=== PATIENT | female | born 1980 | race Two or more races ===

== ENCOUNTER 2025-03-23 09:25 | Emergency (ER) | payer MEDICAID, SELFPAY ==
[2025-03-23 09:28] VITALS: BMI 26.2
[2025-03-23 09:40] VITALS: BP 137/85; PULSE 92; RESP 17; TEMP 36.8; O2SAT 98; BMI 25.8
[2025-03-23 10:38] LABS: Collection Type, Urine Clean Catch
[2025-03-23 10:57] LABS: Bacteria,Urine Rare; Bilirubin,Urine Negative (Negative); Blood,Urine 3+ (Negative); Clarity,Urine Clear (Clear/Hazy); Color,Urine Colorless (Lt Yel-Yel); Culture Indicated,Urine Not Indicated; Glucose, Urine Negative (Negative); Ketones,Urine Negative (Negative); Leukocyte Esterase,Urine Positive (Negative); Nitrite,Urine Negative (Negative); PH,Urine 6.5 (5.0-7.0); Protein,Urine Negative (Neg - Trace); RBC,Urine 1 /hpf (0-3); Specific Gravity,Urine 1.003 (1.001-1.035); Squamous Epithelial Cell,Urine < 1 /hpf (0-5); Urobilinogen,Urine Negative mg/dL (0.0-1.0); WBC,Urine 4 /hpf (0-5)
--- NOTE | 2025-03-23 11:19 | EDNOTE_ITS ---
ED Female Urogenital RME/HPI General Stated complaint: I THINK I HAVE UTI BLOOD IN URINE Time Seen by Provider: 03/23/25 09:30 Arrival date/time: 03/23/25 09:25 45-year-old female presents to the emergency department of complaints of dysuria and hematuria patient reports no chance of patient reports no back pain nausea or vomiting. No flank pain patient symptom onset this morning Limitations: no limitations Related Data Previous Rx's ?Medication ?Instructions ?Recorded hydrocodone 5 mg-acetaminophen 325 1 tab PO Q8H PRN pa in #12 tabs 12/13/23 mg tablet pantoprazole 40 mg tablet,delayed 40 mg PO QDAY #30 ta bs 12/13/23 release (Protonix) ciprofloxacin HCl 500 mg tablet 500 mg PO BID 7 days # 14 tabs 03/23/25 phenazopyridine 100 mg tablet 100 mg PO TID 2 days #6 tabs 03/23/25 (Pyridium) Allergies Allergy/AdvReac Type Severity Reaction Status Date / Time adhesive tape Allergy Severe Blister Verified 03/23/25 09:26 Review of Systems Review of Systems Systems Reviewed: All systems reviewed, normal except as documented Constitutional Constitutional: Reports system reviewed and no additional complaints, except as documented, Denies fever(s) and Denies headache(s) Eyes Eyes: Reports system reviewed and no additional complaints, except as documented and Denies blurry vision ENT Ears, Nose, Mouth, and Throat: Reports system reviewed and no additional complaints, except as documented, Denies headache(s), Denies nasal congestion and Denies nasal discharge Cardiovascular Cardiovascular: Reports system reviewed and no additional complaints, except as documented, Denies chest pain and Denies dyspnea Respiratory Respiratory: Reports system reviewed and no additional complaints, except as documented, Denies chest congestion, Denies cough and Denies dyspnea Gastrointestinal Gastrointestinal: Reports system reviewed and no additional complaints, except as documented and Denies abdominal pain Genitourinary Genitourinary: Reports system reviewed and no additional complaints, except as documented, Denies abnormal vaginal bleeding, Reports dysuria, Denies flank pain and Denies pelvic pain Integumentary/Breasts Skin/Breast: Reports system reviewed and no additional complaints, except as documented and Denies rash Neurologic Neurologic: Reports system reviewed and no additional complaints, except as documented, Reports as per HPI and Denies headache(s) Past Medical History Past Medical History NEUROLOGIC: Negative Neurological Disorders CARDIAC: Positive Cardiac Disorders and Hypertension; Negative Congestive Heart Failure RESPIRATORY: Negative Chronic Obstructive Pulmonary Disease (COPD) GASTROINTESTINAL: Negative Gastrointestinal Disorders GENITOURINARY: Negative Genitourinary Disorders or Renal Disease REPRODUCTIVE: Negative Breast Cancer MUSCULOSKELETAL: Negative Musculoskeletal Disorders ENDOCRINE: Negative Endocrine Disorders, Diabetes Mellitus Type 1 or Diabetes Mellitus Type 2 HEMATOLOGIC: Negative Blood Disorders PSYCHO/SOCIAL: Negative Psychiatric Problems OTHER HISTORY: Negative Breast Cancer Surgical History SURGICAL: Positive Hysterectomy Social History SMOKING STATUS: Never smoker SUBSTANCE USE: does not use ED Exam General Limitations: Present no limitations General appearance: Present alert and in no apparent distress Head Head exam: Present atraumatic, normocephalic and normal inspection Eye Eye exam: Present normal appearance, PERRL and EOMI; Absent conjunctival injection ENT ENT exam: Present normal exam, normal oropharynx and mucous membranes moist Neck Neck exam: Present normal inspection, full ROM and trachea midline Chest Chest inspection: Present normal inspection and symmetric chest wall rise Respiratory Respiratory exam: Present normal lung sounds bilaterally; Absent respiratory distress Cardiovascular Cardiovascular exam: Present regular rate, normal rhythm and normal heart sounds Abdominal Exam Abdominal exam: Present soft and normal bowel sounds; Absent distention, tenderness, guarding, rebound or rigidity Extremities Exam Extremities exam: Present normal inspection and full ROM Back Exam Back exam: Present normal inspection and full ROM Neurological Exam Neurological exam: Present alert, oriented X3 and CN II-XII intact Psychiatric Psychiatric exam: Present normal affect and normal mood Skin Skin exam: Present warm, dry, intact and normal color; Absent rash Course Quality Measures none Orders Category Date Time Status UA, C/S IF [Urinalysis, C/S if Indicated] Stat Lab 03/23/25 10:08 Completed Vital Signs Vital signs: Vital Signs Temperature 98.3 F 03/23/25 09:40 Pulse Rate 92 03/23/25 09:40 Respiratory Rate 17 03/23/25 09:40 Blood Pressure 137/85 H 03/23/25 09:40 Pulse Oximetry (%) 98 03/23/25 09:40 Oxygen Delivery Method Room Air 03/23/25 09:40 O2 saturation 98% on room air within normal limits Urogenital - Female MDM Narrative MDM Narrative:: 45-year-old female presents to the emergency department of complaints of dysuria and hematuria patient reports no chance of patient reports no back pain nausea or vomiting. No flank pain patient symptom onset this morning On exam patient well-appearing patient does not appear look toxic no acute distress Lab work and imaging obtained no acute emergent findings noted Patient discharged home in no distress to follow-up with primary care doctor in the next 24 to 48 hours and for any worsening symptoms to return to the ER immediately Patient data External records reviewed:: [facility] previous records Clinical information provided by:: patient Social determinants that could affect healthcare access:: none Patient has the following chronic illnesses:: None How is presenting disease/condition affected by chronic disease/condition?: no chronic disease Evaluation data The following diagnostics were reviewed and interpreted by me:: lab results Lab and/or radiology exams considered but not ordered:: Lab obtained Interpretation Summary: Reviewed by me Medications / Prescriptions Medications or Prescriptions considered but not ordered:: Given Medication administrations:: Given Consultations Consultation(s) initiated? (list below): No Diagnosis Urogenital Female Differential Diagnosis: urinary tract infection and cystitis Most likely diagnosis given after review of the tests above:: Cystitis Admission Indicated Admission indicated?: not indicated Admission Request Was there a request for admission?: No Disposition Plan Disposition Plan: Discharge Discharge Attestation Discharge Attestation: The patient and all family members were given an opportunity to ask questions and understood the discharge instructions. Discharge instructions specifically effects, indications for sooner follow up or return to the emergency department, and the expected course of current diagnosis. Patient condition: Stable Discharge Plan Plan Patient Disposition: HOME (Self Care) Discharge Disposition comment: Stable Prescriptions/Referrals Prescriptions/Med Rec: New ciprofloxacin HCl 500 mg tablet 500 mg PO BID 7 Days Qty: 14 0RF phenazopyridine [Pyridium] 100 mg tablet 100 mg PO TID 2 Days Qty: 6 0RF No Action pantoprazole [Protonix] 40 mg tablet,delayed release (DR/EC) 40 mg PO QDAY Qty: 30 0RF hydrocodone-acetaminophen 5-325 mg tablet 1 tab PO Q8H MDD 15mg PRN (Reason: pain) Qty: 12 0RF Referrals: Meera Babin MD [Primary Care Provider] - 03/24/25 Problem List Clinical Impression: Dysuria Patient/Caregiver Discharge Instructions Education Materials: Dysuria Additional Instructions: Please follow up with your primary care doctor in the next 24-48hrs for any worsening symptoms return here immediately Print Language: Micronesian Stand Alone Forms: Liliane Award Info., Work/School Release, Patient Portal Info Letter PA/RESEARCH STAFF MEMBER Supervising Physician PA/RESEARCH STAFF MEMBER Supervising Physician: dr cordova
== END 2025-03-23 11:47 | disposition home or self-care (01) ==
PROVIDERS: Nurse Practitioner Primary Care; Emergency Provider Family Medicine; PCP Internal Medicine
DX: R30.0 Dysuria (principal)
CPT/HCPCS: 81001; 99283

== ENCOUNTER → 2025-04-11 | Outpatient (CLI) | payer MEDICAID, SELFPAY ==
--- NOTE | 2025-04-11 16:15 | XR_ITS ---
Examination: Screening digital mammography, bilateral computer aided detection 3-D breast Tomosynthesis, bilateral Date and time: April 11, 2025, 1625 hours, comparison May 29, 2023 Indication: Screening Technique: Nonmagnified MLO, CC views of the breasts to been obtained, reconstructed from 3-D Tomosynthesis images. R2 computer aided detection program utilized for evaluation of suspicious masses and/or abnormal calcifications. 3-D Tomosynthesis images obtained. Findings: The breasts are heterogeneously dense, which may obscure small masses Small focus microcalcifications inner upper right breast posterior depth again noted Small focus of microcalcifications upper outer left breast 10 mm focus of asymmetry outer lower left breast Impression: BI-RADS Category 0: Incomplete: Need additional imaging evaluation Recommend follow-up magnification spot compression films of bilateral foci of microcalcifications as well as bilateral breast sonography to complete work-up Recommend follow-up spot tomographic views of 10 mm focus of asymmetry outer lower left breast
== END | disposition home or self-care (01) ==
LOC: CDIM 16:17
DX: Z12.31 Encounter for screening mammogram for malignant neoplasm of breast (principal); R92.0 Mammographic microcalcification found on diagnostic imaging of breast; N64.89 Other specified disorders of breast; R92.8 Other abnormal and inconclusive findings on diagnostic imaging of breast
CPT/HCPCS: 77063; 77067